=== PATIENT | female | born 1975 | race Caucasian/White ===

== ENCOUNTER 2017-12-04 16:28 | Emergency (ER) | payer MEDICAID ==
[~2017-12-04] VITALS: Ht 160 cm; Wt 61.2 kg
[~2017-12-04 16:28] MED LIST: ACETAMINOPHEN-1 EAC1 PO; AMOXICILLIN875 MG PO; ASPIRIN325 PO; CIPRO500 MG PO; CIPROFLOXACIN500 M1 PO; CLONAZEPAM 0.50.5 M1 PO; DIPHENHIST50 MG PO; FLAGYL500 MG PO; HYDROCODONE-AP1 EAC6 PO; IBUPROFEN 800800 M1 PO; IBUPROFEN 800800 MG PO; INVEGA6 MG; LAMICTAL 25 MG25 M1 PO; MEDROL DOSPAK21 TA1 PO; MEDROLDOSEPACK PO; PEPCID40 MG PO; PERCOCET 5-3251 EACH PO; PERCOCET PO; PREDNISONE 20 M20 MG PO; PRILOSEC 20 MG20 MG PO; SEROQUEL 100 M100 M1 PO; SERTRALINE HCL50 MG PO; VENLAFAXIN75 MG/1 T2 PO; ZOFRAN 4 MG ORAL4 MG PO; ZOFRAN ODT4 MG PO
[2017-12-04] MEDS ORDERED: MAGIC MOUTHWASH SWISH&SPIT (17:17)
[2017-12-04] MEDS ORDERED: ACYCLOVIR 400400 MG PO (17:17)
[2017-12-04 17:25] VITALS: BP 108/71
== END 2017-12-04 17:26 | disposition home or self-care (01) ==
LOC: M.ERS 16:28
DX: F31.9 Bipolar disorder, unspecified (principal); B08.5 Enteroviral vesicular pharyngitis; K21.9 Gastro-esophageal reflux disease without esophagitis; F17.210 Nicotine dependence, cigarettes, uncomplicated; Z90.710 Acquired absence of both cervix and uterus; Z98.890 Other specified postprocedural states; Z85.89 Personal history of malignant neoplasm of other organs and systems; Z88.1 Allergy status to other antibiotic agents; Z88.5 Allergy status to narcotic agent

== ENCOUNTER 2018-04-15 23:54 | Emergency (ER) | payer MEDICAID ==
[~2018-04-15] VITALS: Ht 160 cm; Wt 68.0 kg
[~2018-04-15 23:54] MED LIST changes: +ACYCLOVIR 400400 MG PO; +MAGIC MOUTHWASH SWISH&SPIT
[2018-04-16] MEDS ORDERED: IBU600 MG PO (00:58)
[2018-04-16] MEDS ORDERED: MEDROLDOSEPACK PO (00:58)
[2018-04-16 01:22] VITALS: BP 126/74
== END 2018-04-16 01:23 | disposition home or self-care (01) ==
LOC: M.ERS 23:54
DX: M25.471 Effusion, right ankle (principal); F31.9 Bipolar disorder, unspecified; K21.9 Gastro-esophageal reflux disease without esophagitis; Z88.8 Allergy status to other drugs, medicaments and biological substances; Z88.6 Allergy status to analgesic agent; Z88.5 Allergy status to narcotic agent; F17.210 Nicotine dependence, cigarettes, uncomplicated

== ENCOUNTER 2018-10-15 14:48 | Emergency (ER) | payer OTHER, MEDICAID ==
[~2018-10-15] VITALS: Ht 160 cm; Wt 73.5 kg
[~2018-10-15 14:48] MED LIST changes: +IBU600 MG PO
[2018-10-15 17:00] VITALS: BP 134/84
== END 2018-10-15 17:01 | disposition home or self-care (01) ==
LOC: M.ERS 14:48
DX: S52.592A Other fractures of lower end of left radius, initial encounter for closed fracture (principal); F31.9 Bipolar disorder, unspecified; K21.9 Gastro-esophageal reflux disease without esophagitis; F17.210 Nicotine dependence, cigarettes, uncomplicated; Z98.890 Other specified postprocedural states; Z90.49 Acquired absence of other specified parts of digestive tract; Z90.710 Acquired absence of both cervix and uterus; Z88.6 Allergy status to analgesic agent; Z88.8 Allergy status to other drugs, medicaments and biological substances; W00.0XXA Fall on same level due to ice and snow, initial encounter; Y93.89 Activity, other specified; Y92.89 Other specified places as the place of occurrence of the external cause; Y99.8 Other external cause status

== ENCOUNTER 2020-01-25 20:48 | Emergency (ER) | payer OTHER, MEDICAID ==
[~2020-01-25] VITALS: Ht 157.5 cm; Wt 69.0 kg
[2020-01-25] MEDS ORDERED: SYMBICORT160 MCG/4. INH (21:07)
[2020-01-25 21:18] LABS: INFLUENZA A ANTIGEN Positive (Negative); INFLUENZA B ANTIGEN Negative (Negative)
[2020-01-25] MEDS ORDERED: ZPAK PO (22:35)
[2020-01-25] MEDS ORDERED: MEDROLDOSEPACK PO (22:35)
[2020-01-25] MEDS ORDERED: VENTOLIN HFA 1818 GM INH (22:35)
[2020-01-25] MEDS ORDERED: IBUPROFEN 800800 M1 PO (22:36)
[2020-01-25] MEDS ORDERED: TAMIFLU75 MG PO (22:36)
[2020-01-25 22:52] VITALS: BP 139/94
== END 2020-01-25 22:53 | disposition home or self-care (01) ==
LOC: M.ERS 20:48
PROVIDERS: Emergency Medicine
DX: J10.1 Influenza due to other identified influenza virus with other respiratory manifestations (principal); F17.210 Nicotine dependence, cigarettes, uncomplicated; K21.9 Gastro-esophageal reflux disease without esophagitis; F31.9 Bipolar disorder, unspecified; Z90.49 Acquired absence of other specified parts of digestive tract; Z88.5 Allergy status to narcotic agent; Z88.8 Allergy status to other drugs, medicaments and biological substances; Z90.710 Acquired absence of both cervix and uterus

== ENCOUNTER 2020-07-22 11:55 | Emergency (ER) | payer OTHER, MEDICAID ==
[~2020-07-22] VITALS: Ht 154.9 cm; Wt 65.8 kg
[~2020-07-22 11:55] MED LIST changes: +SYMBICORT160 MCG/4. INH; +TAMIFLU75 MG PO; +VENTOLIN HFA 1818 GM INH; +ZPAK PO
[2020-07-22] MEDS ORDERED: FLEXERIL PO (13:46)
[2020-07-22] MEDS ORDERED: KEFLEX500 M1 PO (13:46)
[2020-07-22] MEDS ORDERED: NAPROSYN500 MG PO (13:46)
[2020-07-22 14:12] VITALS: BP 121/70
== END 2020-07-22 14:13 | disposition home or self-care (01) ==
LOC: M.ERS 11:55
DX: S16.1XXA Strain of muscle, fascia and tendon at neck level, initial encounter (principal); K21.9 Gastro-esophageal reflux disease without esophagitis; F17.210 Nicotine dependence, cigarettes, uncomplicated; Z88.5 Allergy status to narcotic agent; Z88.6 Allergy status to analgesic agent; Z88.8 Allergy status to other drugs, medicaments and biological substances; Z85.41 Personal history of malignant neoplasm of cervix uteri; Z98.890 Other specified postprocedural states; Z90.49 Acquired absence of other specified parts of digestive tract; Z90.710 Acquired absence of both cervix and uterus; V89.2XXA Person injured in unspecified motor-vehicle accident, traffic, initial encounter; Y93.89 Activity, other specified; Y92.89 Other specified places as the place of occurrence of the external cause; Y99.8 Other external cause status

== ENCOUNTER 2021-03-24 15:50 | Emergency (ER) | payer OTHER, MEDICAID ==
[~2021-03-24] VITALS: Ht 160 cm; Wt 65.8 kg
[~2021-03-24 15:50] MED LIST changes: +FLEXERIL PO; +KEFLEX500 M1 PO; +NAPROSYN500 MG PO
[2021-03-24 16:11] VITALS: BP 127/73
== END 2021-03-24 17:51 | disposition home or self-care (01) ==
LOC: M.ERS 15:50
DX: J02.8 Acute pharyngitis due to other specified organisms (principal); B97.89 Other viral agents as the cause of diseases classified elsewhere; Z20.822 Contact with and (suspected) exposure to COVID-19; K21.9 Gastro-esophageal reflux disease without esophagitis; F17.210 Nicotine dependence, cigarettes, uncomplicated; Z98.890 Other specified postprocedural states; Z90.710 Acquired absence of both cervix and uterus; Z90.49 Acquired absence of other specified parts of digestive tract; Z85.41 Personal history of malignant neoplasm of cervix uteri; Z88.8 Allergy status to other drugs, medicaments and biological substances; Z88.5 Allergy status to narcotic agent; Z88.6 Allergy status to analgesic agent

== ENCOUNTER 2021-09-09 09:55 | Emergency (ER) | payer OTHER, MEDICAID ==
[~2021-09-09] VITALS: Ht 157.5 cm; Wt 63.5 kg
[2021-09-09 10:13] VITALS: BP 117/88
[2021-09-09] MEDS ORDERED: PROAIR HFA8.5 GM INH (10:16)
[2021-09-09] MEDS ORDERED: BUSPAR30 MG PO (10:16)
[2021-09-09] MEDS ORDERED: ZYRTEC10 M5 PO (10:16)
[2021-09-09] MEDS ORDERED: VISTARIL50 MG PO (10:16)
[2021-09-09] MEDS ORDERED: PREDNISONE 20 M20 M1 PO (10:28)
[2021-09-09] MEDS ORDERED: ZPAK PO (10:28)
== END 2021-09-09 10:58 | disposition home or self-care (01) ==
LOC: M.ERS 09:55
DX: J40 Bronchitis, not specified as acute or chronic (principal); F31.9 Bipolar disorder, unspecified; K21.9 Gastro-esophageal reflux disease without esophagitis; F17.210 Nicotine dependence, cigarettes, uncomplicated; Z85.89 Personal history of malignant neoplasm of other organs and systems; Z98.890 Other specified postprocedural states; Z90.89 Acquired absence of other organs; Z90.710 Acquired absence of both cervix and uterus; Z79.51 Long term (current) use of inhaled steroids; Z79.899 Other long term (current) drug therapy; Z88.5 Allergy status to narcotic agent; Z88.6 Allergy status to analgesic agent; Z88.8 Allergy status to other drugs, medicaments and biological substances